=== PATIENT | male | born 1985 | race Caucasian/White ===

== ENCOUNTER → 2024-01-09 13:51 | Outpatient (REF) | payer OTHER, SELFPAY | LOC: PAVMRI 13:51 | PROVIDERS: ATTENDING PHYSICIAN Pain Medicine Interventional Pain Medicine; FAMILY PHYSICIAN Family Medicine | DX: M54.16 Radiculopathy, lumbar region (principal); S05.50XA Penetrating wound with foreign body of unspecified eyeball, initial encounter | CPT/HCPCS: 70030; 72148 ==

== ENCOUNTER → 2024-08-12 07:08 | Outpatient (REF) | payer OTHER, SELFPAY | LOC: EMG 07:08 | PROVIDERS: ATTENDING PHYSICIAN Physician Assistant; FAMILY PHYSICIAN Family Medicine | DX: M54.16 Radiculopathy, lumbar region (principal) | CPT/HCPCS: 95886; 95910 ==